=== PATIENT | female | born 1945 | race Caucasian/White ===

== ENCOUNTER 2017-10-16 11:56 | Inpatient (IN) | payer OTHER, MEDICARE ==
[~2017-10-16] VITALS: Ht 171.4 cm; Wt 126.8 kg
[2017-10-16] MEDS ORDERED: BREO ELLIPTA 11 EACH INH (12:00)
[2017-10-16] MEDS ORDERED: ANASTROZOLE1 M1 PO (12:00)
[2017-10-16] MEDS ORDERED: INCRUSE ELLI62.5 MCG INH (12:01)
[2017-10-16] MEDS ORDERED: PROAIR HFA8.5 GM INH (12:01)
[2017-10-16] MEDS ORDERED: LISINOPRIL-HCT1 EACH PO (12:02)
[2017-10-16] MEDS ORDERED: ALLOPURINOL100 M1 PO (12:02)
[2017-10-16] MEDS ORDERED: AMLODIPINE BESY10 M1 PO (12:02)
[2017-10-16] MEDS ORDERED: MIRTAZAPINE30 M2 PO (12:03)
[2017-10-16] MEDS ORDERED: VENLAFAXINE HC150 MG PO (12:04)
[2017-10-16] MEDS ORDERED: SIMVASTATIN80 M1 PO (12:04)
[2017-10-16] MEDS ORDERED: LEVOTHYROXINE100 MC1 PO (12:05)
[2017-10-16] MEDS ORDERED: CARISOPRODOL350 M1 PO (12:05)
[2017-10-16] MEDS ORDERED: NAMENDA10 M2 PO (12:05)
[2017-10-16] MEDS ORDERED: ASPIRIN81 M4 PO (12:06)
[2017-10-16] MEDS ORDERED: DIAZEPAM10 M1 PO (12:06)
[2017-10-16] MEDS ORDERED: MYRBETRIQ25 M1 PO (12:06)
[2017-10-16] MEDS ORDERED: CLARITIN10 M1 PO (12:07)
--- NOTE | 2017-10-16 12:24 | ED NEURO DEFICIT/STROKE ---
See Addendum History of Present Illness General Chief Complaint: Neuro Symptoms/ Deficit Stated Complaint: NEURO Source: patient, family, old records, EMS Exam Limitations: no limitations Vital Signs & Intake/Output Vital Signs & Intake/Output Vital Signs Date Time Temp Pulse Resp B/P B/P Pulse O2 O2 Flow FiO2 Mean Ox Delivery Rate 10/16 1315 96.5 88 18 104/51 94 Nasal 2.0L Cannula 10/16 1156 94 Nasal 2.0L Cannula Allergies Coded Allergies: Penicillins (UNKNOWN 10/16/17) Reconcile Medications Albuterol Sulfate (Proair Hfa) 90 MCG HFA.AER.AD 2 PUF INH Q4-6 PRN PRN SHORTNESS OF BREATH (Reported) Allopurinol 100 MG TABLET 1 TAB PO QPM GOUT (Reported) Amlodipine Besylate 10 MG TABLET 1 TAB PO DAILY HEART (Reported) Anastrozole 1 MG TABLET 1 TAB PO DAILY BREAST CANCER (Reported) Aspirin (Aspirin*) 81 MG TAB.CHEW 1 TAB PO QPM HEART HEALTH (Reported) Carisoprodol 350 MG TABLET 1 TAB PO TIDPRN PRN SPASMS (Reported) Diazepam 10 MG TABLET 1 TAB PO TIDPRN PRN ANXIETY (Reported) Fluticasone/Vilanterol (Breo Ellipta 100-25 Mcg INH) 100 MCG-25 MCG/DOSE BLST.W.DEV 1 PUFF INH DAILY BREATHING PROBLEMS (Reported) Levothyroxine Sodium 100 MCG TABLET 1 TAB PO DAILY AC THYROID (Reported) Lisinopril/Hydrochlorothiazide (Lisinopril-Hctz 20-12.5 MG Tab) 20 MG-12.5 MG TABLET 1 TAB PO DAILY HEART (Reported) Loratadine (Claritin) 10 MG TABLET 1 TAB PO DAILY ALLERGIES (Reported) Memantine HCl (Namenda) 10 MG TABLET 1 TAB PO BID MEMORY (Reported) Mirabegron (Myrbetriq) 25 MG TAB.ER.24H 1 TAB PO DAILY BLADDER (Reported) Mirtazapine 30 MG TABLET 1 TAB PO QPM SLEEP (Reported) Simvastatin (Simvastatin*) 80 MG TABLET 1 TAB PO QPM CHOLESTEROL (Reported) Umeclidinium [place] (Incruse Ellipta) 62.5 MCG/ACTUATION BLST.W.DEV 1 PUFF INH DAILY BREATHING PROBLEMS (Reported) Venlafaxine HCl (Venlafaxine HCl ER) 150 MG CAP.ER.24H 1 CAP PO QPM MENTAL HEALTH (Reported) Triage Nurses Notes Reviewed? yes HPI: Patient is currently staying with her daughter. Patient had a mechanical fall out of bed this morning. EMS was contacted. Patient was able to get up and walk around and do her activities of daily living normally this morning so she refused treatment. One hour prior to arrival patient had a sudden onset of right arm weakness and difficulty finding her words. EMS was contacted and patient was brought in for evaluation. Patient denies any headache or blurry vision. There is no chest pain or shortness of breath. Past History Travel History Traveled to [place] past 21 day No Medical History Any Pertinent Medical History? see below for history Cardiovascular: hypertension, hyperlipidemia Surgical History Surgical History: non-contributory Family History Hx Contributory? No Review of Systems Review of Systems Constitutional: Reports: no symptoms. EENTM: Reports: no symptoms. Respiratory: Reports: no symptoms. Cardiovascular: Reports: no symptoms. GI: Reports: no symptoms. Genitourinary: Reports: no symptoms. Musculoskeletal: Reports: no symptoms. Skin: Reports: no symptoms. Neurological/Psychological: Reports: see HPI. Hematologic/Endocrine: Reports: no symptoms. Immunologic/Allergic: Reports: no symptoms. All Other Systems: Reviewed and Negative Physical Exam Physical Exam General Appearance: well developed/nourished, alert, awake, anxious, mild distress Head: atraumatic, normal appearance Eyes: Bilateral: PERRL, EOMI. Ears, Nose, Throat: normal ENT inspection, moist mucous membrane, hearing grossly normal Neck: normal inspection, supple, full range of motion Respiratory: normal breath sounds, chest non-tender, no respiratory distress, lungs clear Cardiovascular: regular rate/rhythm, normal peripheral pulses Gastrointestinal: normal bowel sounds, soft, non-tender, no organomegaly Back: normal inspection, normal range of motion Extremities: normal range of motion Psychiatric: awake, alert, oriented x 3 Cranial Nerves: normal hearing, PERRL, WORD FINDING Coordination/Gait: RIGHT PRONATOR DRIFT Motor/Sensory: motor deficit, pronator drift (R) Reflexes: 2+: bicep (R), bicep (L), tricep (L), tricep (L), knee (R), knee (L). Skin: intact, normal color, warm/dry Lymphatic: no anterior cervical estela Core Measures CVA/TIA Diagnosis: Yes NIH Stroke Scale NIH Stroke Scale Response Value Level of Consciousness alert 0 LOC Questions answers both correctly 0 LOC Commands obeys both correctly 0 Best Gaze normal 0 Visual Carpio no visual loss 0 Facial Paresis normal 0 Motor Arm - Left no drift 0 Motor Arm - Right drift 1 Motor Leg - Left no drift 0 Motor Leg - Right no drift 0 Limb Ataxia no ataxia 0 Sensory normal 0 Best Language mild to moderate aphasia 1 Dysarthria normal articulation 0 Extinction and Inattention no neglect 0 Total 2 Date Last Known Well: 10/16/17 Time Last Known Well: 1100 Symptom Start Date: 10/16/17 Symptom Start Time: 1100 tPA Risk/Benefit discussion I have discussed the risks, benefits, and alternatives of Alteplase treatment including: - If given promptly, can resolve or have major improvement in stroke symptoms. - Bleeding (hemorrhage) is the most common risk that can occur. - Bleeding may occur into the brain and cause~long-term serious disability~ including - this is rare, affecting about 1% of patients. - Alternative treatments with proven benefit for patients with stroke include aspirin and care in a specialized unit where staff members pay careful attention to a variety of basic aspects of care. tPA given? No Reason tPA not given Medical Contraindication Swallow Evaluation Pass Swallow eval date 10/16/17 Swallow eval time 1257 Sepsis Present: No Sepsis Focused Exam Completed? No Progress Differential Diagnosis: electrolyte imbalance, intracranial mass/tumor, migraine ELIAS, stroke, subarachnoid Hem., vertebrobasilar insuff. Plan of Care: Orders Procedure Date/time Status Heart Healthy Diet 10/16 D Active Patient Data 10/[address] in observation 10/16 1332 Active ED Holding Orders 10/16 1332 Active Code Status 10/[address] NECK ANGIOGRAM 10/[address] HEAD ANGIOGRAM 10/16 1233 Active XRY-PORTABLE CHEST XRAY 10/16 1203 Active Saline Lock 10/16 1203 Active URINALYSIS 10/16 1203 Active PARTIAL THROMBOPLASTIN TIME 10/16 1203 Complete PROTHROMBIN TIME 10/16 1203 Complete COMPREHENSIVE METABOLIC PANEL 10/16 1203 Active CBC WITHOUT DIFFERENTIAL 10/16 1203 Complete EKG 10/16 1203 Active Current Medications Sig/Ryan Start time Last Medication Dose Stop Time Status Admin Potassium Chloride 20 MEQ .Q6H40M 10/16 1215 UNVr (KCl 20MEQ in D5W NS 1000ML) Dextrose/Sodium 1,000 ML Chloride (D5-Normal Saline) Laboratory Tests 10/16/17 1225: Sodium Pending, Potassium Pending, Chloride Pending, Carbon Dioxide Pending, Anion Gap Pending, BUN Pending, Creatinine Pending, BUN/Creatinine Ratio Pending , Glucose Pending, Calcium Pending, Total Bilirubin Pending, AST Pending, ALT Pending, Alkaline Phosphatase Pending, Total Protein Pending, Albumin Pending, Globulin Pending, Albumin/Globulin Ratio Pending, PT 11.9, INR 1.09, APTT 33, CBC w Diff NO MAN DIFF REQ, RBC 4.46, MCV 95.1, MCH 31.6 H, MCHC 33.2, RDW 15.0 H, MPV 7.2 L, Gran % 75.9 H, Lymphocytes % 16.2 L, Monocytes % 4.7, Eosinophils % 2.8, Basophils % 0.4, Absolute Granulocytes 7.9 H, Absolute Lymphocytes 1.7, Absolute Monocytes 0.5, Absolute Eosinophils 0.3, Absolute Basophils 0 Diagnostic Imaging: Viewed by Me: Radiology Read, CT Scan. Discussed w/RAD: Radiology Read, CT Scan. Radiology Impression: PATIENT: CHUY MODI PRESENT AGE: 71 PATIENT ACCOUNT NO: [id number] : 43 LOCATION: [facility] ORDERING PHYSICIAN: Yusef Alvarado MD SERVICE DATE: 10/16/17 EXAM TYPE: CAT - CT CERV SPINE WO IV CONTRAST EXAMINATION: CT OF THE CERVICAL SPINE WITHOUT CONTRAST CLINICAL INFORMATION: Question fell out of bed. Evaluate for fracture.. COMPARISON: None. TECHNIQUE: Contiguous axial imaging was then performed from the skull base down to the thoracic inlet. Coronal and sagittal reformations of the cervical spine were obtained. DLP: 1141.85 mGy-cm. (This dose report includes the CT scan of the head). FINDINGS: Normal alignment is seen with no evidence of acute fracture or dislocation. Craniocervical junction and atlantoaxial articulations are intact. Prevertebral soft tissues are normal in thickness. There is extensive degenerative change at the atlantoaxial articulation with calcifications of the transverse ligament and prominent hypertrophic changes seen. There is severe degenerative disc disease with early fusion across the C5-6 and C6-7 levels with associated prominent spurring and cystic changes seen. Posterior marginal spurs are seen projecting into the spinal canal at the C5-6 and C6-7 levels causing mild spinal stenosis. Moderate facet arthropathy is seen throughout the mid and lower cervical spine, more pronounced on the left side than the right. Moderate degenerative changes are also seen in the upper thoracic spine. The included soft tissues of the neck and lung apices are unremarkable. IMPRESSION: 1. No evidence of cervical spine fracture or malalignment. 2. Severe degenerative disc disease and partial fusion across C5-6 and C6-7. 3. Moderate degenerative changes at the atlantoaxial articulation and at the facet joints in the mid and lower cervical spine. DICTATED BY: Velvet Irene MD DATE/TIME DICTATED:10/16/171234 TRANSFUSION NURSE:ANDREA DATE/TIME TRANSCRIBED:10/16/171234 CONFIDENTIAL, DO NOT COPY WITHOUT APPROPRIATE AUTHORIZATION. <Electronically signed in Other Vendor System> SIGNED BY: Velvet Irene MD 10/16/17 1249, PATIENT: CHUY MODI PRESENT AGE: 71 PATIENT ACCOUNT NO: [id number] : 43 LOCATION: [facility] ORDERING PHYSICIAN: Yusef Alvarado MD SERVICE DATE: 10/16/17 EXAM TYPE: CAT - CT HEAD WO IV CONTRAST EXAMINATION: CT HEAD WITHOUT CONTRAST CLINICAL INFORMATION: Word finding, right pronator drift. Question CVA. COMPARISON: None TECHNIQUE: Contiguous axial imaging was performed from the skull base to vertex without intravenous administration of contrast. DLP: 1141.85 mGy-cm (this dose report includes the CT scan of the cervical spine). FINDINGS: Evaluation is limited due to motion artifact. There is no evidence of acute intracranial hemorrhage or territorial infarction. No abnormal mass effect or midline shift is seen. Smith to white matter differentiation is largely preserved. There is some indistinctness of the left insular cortex, but this may simply be related to the extensive streak artifact. No extra-axial fluid collections are identified. The ventricles and sulci are mildly enlarged, consistent with involutional changes. There is no abnormal attenuation within the brain parenchyma. The osseous structures and soft tissues are normal. A mucus retention cyst in the left maxillary sinus is seen The mastoid air cells and visualized portions of the paranasal sinuses are otherwise well aerated. IMPRESSION: 1. No definite territorial infarct seen, though evaluation is significantly limited by the motion artifact. Close follow- up is recommended. 2. No acute intracranial hemorrhage. 3. Small mucous retention cyst in the left maxillary sinus. This critical result was discussed with Dr. Alvarado 10/16/2017, 12:32 PM and it was ascertained that the content and urgency of this report was understood at the time of direct communication. DICTATED BY: Velvet Irene MD DATE/TIME DICTATED:10/16/171215 TRANSFUSION NURSE:ANDREA DATE/TIME TRANSCRIBED:10/16/171215 CONFIDENTIAL, DO NOT COPY WITHOUT APPROPRIATE AUTHORIZATION. <Electronically signed in Other Vendor System> SIGNED BY: Velvet Irene MD 10/16/17 1238 Pre-Hospital EKG: NSR, nonspecific ST T wave chg Initial ED EKG: NSR, nonspecific ST T wave chg Rhythm Strip: normal sinus rhythm Comments: When patient got off the CT table on reevaluation her symptoms have resolved. Patient now has a clear fluent speech. There is no pronator drift. Departure Departure Disposition: STILL A PATIENT Condition: Stable Clinical Impression Primary Impression: TIA (transient ischemic attack) Referrals: Jyoti TURK,Getachew Parada (PCP/Family) Departure Forms: Customer Survey General Discharge Information Observation Note Spoke With: Jaylan TURK,Pete Physician Advisor Notified: KWAKU TURK,YUSEF [address] Patient In: Non-ED OBS Care Area Rationale for Observation: My rational for observation is as follows [TELE OBS, NEURO CONSULT].
[2017-10-16 12:33] LABS: ABSOLUTE BASOPHIL COUNT 0 /CUMM (0.0-0.2); ABSOLUTE EOSINOPHIL COUNT 0.3 /CUMM (0.0-0.7); ABSOLUTE GRANULOCYTE CT 7.9 /CUMM (1.4-6.5); ABSOLUTE LYMPH COUNT 1.7 /CUMM (1.2-3.4); ABSOLUTE MONOCYTE COUNT 0.5 /CUMM (0.10-0.60); BASOPHIL % 0.4 % (0.0-2.0); EOSINOPHIL % 2.8 % (0-5); GRANULOCYTE % 75.9 % (42.2-75.2); HEMATOCRIT 42.4 % (37-47); MEAN CORPUSCULAR HGB 31.6 PG (27.0-31.0); MEAN CORPUSCULAR HGB CONC 33.2 G/DL (33.0-37.0); MEAN CORPUSCULAR VOLUME 95.1 FL (81.0-99.0); MEAN PLATELET VOLUME 7.2 FL (7.4-10.4); PLATELET COUNT 347 /CUMM (130-400); RED BLOOD CELL CT 4.46 /CUMM (4.20-5.40); WHITE BLOOD CELL COUNT 10.4 /CUMM (4.8-10.8)
--- NOTE | 2017-10-16 12:38 | CT SCAN REPORT ---
EXAMINATION: CT HEAD WITHOUT CONTRAST CLINICAL INFORMATION: Word finding, right pronator drift. Question CVA. COMPARISON: None TECHNIQUE: Contiguous axial imaging was performed from the skull base to vertex without intravenous administration of contrast. DLP: 1141.85 mGy-cm (this dose report includes the CT scan of the cervical spine). FINDINGS: Evaluation is limited due to motion artifact. There is no evidence of acute intracranial hemorrhage or territorial infarction. No abnormal mass effect or midline shift is seen. Smith to white matter differentiation is largely preserved. There is some indistinctness of the left insular cortex, but this may simply be related to the extensive streak artifact. No extra-axial fluid collections are identified. The ventricles and sulci are mildly enlarged, consistent with involutional changes. There is no abnormal attenuation within the brain parenchyma. The osseous structures and soft tissues are normal. A mucus retention cyst in the left maxillary sinus is seen The mastoid air cells and visualized portions of the paranasal sinuses are otherwise well aerated. IMPRESSION: 1. No definite territorial infarct seen, though evaluation is significantly limited by the motion artifact. Close follow-up is recommended. 2. No acute intracranial hemorrhage. 3. Small mucous retention cyst in the left maxillary sinus. This critical result was discussed with Dr. Alvarado 10/16/2017, 12:32 PM and it was ascertained that the content and urgency of this report was understood at the time of direct communication.
[2017-10-16 12:42] LABS: PT 11.9 SEC (9.4-12.5); PTT 33 SEC (25-37)
--- NOTE | 2017-10-16 12:49 | CT SCAN REPORT ---
EXAMINATION: CT OF THE CERVICAL SPINE WITHOUT CONTRAST CLINICAL INFORMATION: Question fell out of bed. Evaluate for fracture.. COMPARISON: None. TECHNIQUE: Contiguous axial imaging was then performed from the skull base down to the thoracic inlet. Coronal and sagittal reformations of the cervical spine were obtained. DLP: 1141.85 mGy-cm. (This dose report includes the CT scan of the head). FINDINGS: Normal alignment is seen with no evidence of acute fracture or dislocation. Craniocervical junction and atlantoaxial articulations are intact. Prevertebral soft tissues are normal in thickness. There is extensive degenerative change at the atlantoaxial articulation with calcifications of the transverse ligament and prominent hypertrophic changes seen. There is severe degenerative disc disease with early fusion across the C5-6 and C6-7 levels with associated prominent spurring and cystic changes seen. Posterior marginal spurs are seen projecting into the spinal canal at the C5-6 and C6-7 levels causing mild spinal stenosis. Moderate facet arthropathy is seen throughout the mid and lower cervical spine, more pronounced on the left side than the right. Moderate degenerative changes are also seen in the upper thoracic spine. The included soft tissues of the neck and lung apices are unremarkable. IMPRESSION: 1. No evidence of cervical spine fracture or malalignment. 2. Severe degenerative disc disease and partial fusion across C5-6 and C6-7. 3. Moderate degenerative changes at the atlantoaxial articulation and at the facet joints in the mid and lower cervical spine.
--- NOTE | 2017-10-16 13:51 | CT SCAN REPORT ---
EXAMINATION: CT ANGIOGRAM OF THE HEAD CT ANGIOGRAM OF THE NECK CLINICAL INFORMATION: CVA. COMPARISON: CT scan of the head earlier 10/16/2017. TECHNIQUE: Test bolus series followed by intravenous administration 95 mL of Optiray 320. Helical imaging was performed in the axial plane from the mediastinum to the skull vertex. The degree of stenosis is based off NASCET criteria. The data was processed at the production technologist workstation for generation of MIP images. Three-dimensional volume rendered reformatted images were also generated at an offline 3-D workstation. Imaging is slightly the gradient by patient motion artifact. DLP: 1968.15 mGy-cm FINDINGS: CT Head: There is no evidence of acute intracranial hemorrhage or territorial infarction. No abnormal mass-effect or midline shift is seen. Smith to white matter differentiation is well preserved. No extra-axial fluid collections are identified. There is no abnormal enhancement. There is mild commensurate prominence of the ventricles and sulci consistent with diffuse volume loss. Brain parenchymal attenuation is slightly heterogenous in the periventricular and subcortical white matter, consistent with microvascular ischemic changes. Fat is noted in the anterior falx. There is relatively extensive hyperostosis frontalis interna. There are atheromatous calcifications of the bilateral cavernous internal carotid arteries in the right greater than left vertebral arteries. The soft tissues are unremarkable. The mastoid air cells are well-aerated. There is a retention cyst in the left maxillary sinus. CTA Neck: There is a classic configuration of the arch of the aorta. There are atheromatous calcifications of the aortic arch and at the origin of the left subclavian artery. The great vessels of the neck are widely patent. The subclavian arteries are patent bilaterally. The common carotid arteries have normal caliber. There are atheromatous calcifications of the carotid bifurcations bilaterally, but there is no significant stenosis. The cervical internal carotid arteries have uniform caliber and are widely patent. The origins of both vertebral arteries are well seen and appear normal. Both vertebral arteries are widely patent and demonstrate good opacification throughout their cervical course. The vertebral arteries are codominant. Nonvascular: There are emphysematous changes in the upper lung zones. The thyroid gland is nonenlarged. There is no cervical lymphadenopathy. There are relatively extensive spondylitic changes in the mid and lower cervical spine and in the upper thoracic spine. There are no acute osseous findings. CTA Head: There are atheromatous calcifications of the cavernous internal carotid arteries bilaterally. 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 The internal carotid artery bifurcations appear normal. The anterior and middle middle cerebral arteries demonstrate normal caliber without focal stenosis, aneurysm or vascular malformation. The anterior communicating artery appears normal. In the posterior circulation, vertebral arteries are codominant. There are atheromatous calcifications on the right greater than left proximal vertebral arteries. The vertebral arteries intradurally have uniform caliber. The basilar artery appears normal. The posterior cerebral arteries have normal caliber. The venous sinuses opacify normally. IMPRESSION: CT head: 1. There are no acute bleeds or territorial infarcts. 2. There are no masses or areas of abnormal enhancement. 3. There is volume loss and mild chronic microvascular ischemic disease. CT neck: 1. There are atheromatous calcifications at multiple levels as described above. 2. There is no significant stenosis in the carotid or vertebral arteries. CTA head: 1. 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 2. There are no focal stenoses or vascular malformations.
--- NOTE | 2017-10-16 14:37 | Cons- Neurology ---
General Information and HPI Consulting Request Date of Consult: 10/16/17 Requested By: Abeba Torres MD Reason for Consult: Transient Ischemic Attack Source of Information: patient Exam Limitations: no limitations History of Present Illness: 71-year-old woman with no prior neurologic history reports 2 episodes of inability to find words today, first in the morning and again in the afternoon at which point she presented to the ER. A stroke alert was called. An expressive aphasia without other evident deficits was noted by the ER MD, but were clearing by the time CT was done. 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 Allergies/Medications Allergies: Coded Allergies: Penicillins (UNKNOWN 10/16/17) Home Med List: Albuterol Sulfate (Proair Hfa) 90 MCG HFA.AER.AD 2 PUF INH Q4-6 PRN PRN SHORTNESS OF BREATH (Reported) Allopurinol 100 MG TABLET 1 TAB PO QPM GOUT (Reported) Amlodipine Besylate 10 MG TABLET 1 TAB PO DAILY HEART (Reported) Anastrozole 1 MG TABLET 1 TAB PO DAILY BREAST CANCER (Reported) Aspirin (Aspirin*) 81 MG TAB.CHEW 1 TAB PO QPM HEART HEALTH (Reported) Carisoprodol 350 MG TABLET 1 TAB PO TIDPRN PRN SPASMS (Reported) Diazepam 10 MG TABLET 1 TAB PO TIDPRN PRN ANXIETY (Reported) Fluticasone/Vilanterol (Breo Ellipta 100-25 Mcg INH) 100 MCG-25 MCG/DOSE BLST.W.DEV 1 PUFF INH DAILY BREATHING PROBLEMS (Reported) Levothyroxine Sodium 100 MCG TABLET 1 TAB PO DAILY AC THYROID (Reported) Lisinopril/Hydrochlorothiazide (Lisinopril-Hctz 20-12.5 MG Tab) 20 MG-12.5 MG TABLET 1 TAB PO DAILY HEART (Reported) Loratadine (Claritin) 10 MG TABLET 1 TAB PO DAILY ALLERGIES (Reported) Memantine HCl (Namenda) 10 MG TABLET 1 TAB PO BID MEMORY (Reported) Mirabegron (Myrbetriq) 25 MG TAB.ER.24H 1 TAB PO DAILY BLADDER (Reported) Mirtazapine 30 MG TABLET 1 TAB PO QPM SLEEP (Reported) Simvastatin (Simvastatin*) 80 MG TABLET 1 TAB PO QPM CHOLESTEROL (Reported) Umeclidinium [place] (Incruse Ellipta) 62.5 MCG/ACTUATION BLST.W.DEV 1 PUFF INH DAILY BREATHING PROBLEMS (Reported) Venlafaxine HCl (Venlafaxine HCl ER) 150 MG CAP.ER.24H 1 CAP PO QPM MENTAL HEALTH (Reported) Current Medications: Current Medications Sig/Ryan Start time Last Medication Dose Route Stop Time Status Admin Aspirin 0 .STK-MED ONE 10/16 1337 DC PO Aspirin 325 MG ONCE ONE 10/16 1300 DC 10/16 PO 10/16 1301 1345 Potassium Chloride 20 MEQ .Q6H40M 10/16 1215 AC 10/16 Dextrose/Sodium 1,000 ML IV 10/16 1854 1345 Chloride Review of Systems Review of Systems: The complete medical ROS reveals no complaints whatsoever Past History Travel History Traveled to [place] past 21 day No Medical History Neurological: dementia EENT: NONE Cardiovascular: hypertension, hyperlipidemia Respiratory: asthma Gastrointestinal: GASTRITIS Hepatic: NONE Renal: KIDNEY STONES Musculoskeletal: NONE Psychiatric: anxiety, depression Endocrine: hypothyroidism Blood Disorders: NONE Cancer(s): breast cancer Surgical History Surgical History: non-contributory Psychosocial History Smoking Status: Former Smoker ETOH Use: denies use Exam & Diagnostic Data Vital Signs and I&O Vital Signs Date Time Temp Pulse Resp B/P B/P Pulse O2 O2 Flow FiO2 Mean Ox Delivery Rate 10/16 1403 88 18 109/53 98 Nasal 2.0L Cannula 10/16 1315 96.5 88 18 104/51 94 Nasal 2.0L Cannula 10/16 1156 94 Nasal 2.0L Cannula Intake & Output 10/16 1600 10/16 0800 10/16 0000 Intake Total 150 Output Total Balance 150 Intake, Oral 150 Patient 311 lb Weight Weight Bed scale Measurement Method Physical Exam: overweight, no distress no carotid bruits or murmur alert, oriented, no dynomia or dysarthria, but difficult to engage in conversation. Follows 130, 90commands OK VFF, EOMI, P4ERRL lower CN 5-12 normal power 5/5 all 4 ext, no drift DTRs trace UE, absent LE, right Babinski sensory WNL coord, mild tremor on NFN bilaterally gait testing deferred Last 48 Hours of Lab Results: Laboratory Tests 10/16 1225 Chemistry Sodium (137 - 145 mmol/L) 135 L Potassium (3.5 - 5.1 mmol/L) 4.1 Chloride (98 - 107 mmol/L) 96 L Carbon Dioxide (22 - 30 mmol/L) 30 Anion Gap (5 - 16) 9 BUN (7 - 17 mg/dL) 27 H Creatinine (0.5 - 1.0 mg/dL) 1.0 Estimated GFR (>60 ml/min) 54 L BUN/Creatinine Ratio (7 - 25 %) 27.0 H Glucose (65 - 99 mg/dL) 109 H Calcium (8.4 - 10.2 mg/dL) 9.1 Total Bilirubin (0.2 - 1.3 mg/dL) 0.5 AST (14 - 36 U/L) 52 H ALT (9 - 52 U/L) 43 Alkaline Phosphatase (<127 U/L) 81 Total Protein (6.3 - 8.2 g/dL) 6.8 Albumin (3.5 - 5.0 g/dL) 3.9 Globulin (1.9 - 4.2 gm/dL) 2.9 Albumin/Globulin Ratio (1.1 - 2.2 %) 1.3 Coagulation PT (9.4 - 12.5 SEC) 11.9 INR (0.90 - 1.19) 1.09 APTT (25 - 37 SEC) 33 Hematology CBC w Diff NO MAN DIFF REQ WBC (4.8 - 10.8 /CUMM) 10.4 RBC (4.20 - 5.40 /CUMM) 4.46 Hgb (12.0 - 16.0 G/DL) 14.1 Hct (37 - 47 %) 42.4 MCV (81.0 - 99.0 FL) 95.1 MCH (27.0 - 31.0 PG) 31.6 H MCHC (33.0 - 37.0 G/DL) 33.2 RDW (11.5 - 14.5 %) 15.0 H Plt Count (130 - 400 /CUMM) 347 MPV (7.4 - 10.4 FL) 7.2 L Gran % (42.2 - 75.2 %) 75.9 H Lymphocytes % (20.5 - 51.1 %) 16.2 L Monocytes % (1.7 - 9.3 %) 4.7 Eosinophils % (0 - 5 %) 2.8 Basophils % (0.0 - 2.0 %) 0.4 Absolute Granulocytes (1.4 - 6.5 /CUMM) 7.9 H Absolute Lymphocytes (1.2 - 3.4 /CUMM) 1.7 Absolute Monocytes (0.10 - 0.60 /CUMM) 0.5 Absolute Eosinophils (0.0 - 0.7 /CUMM) 0.3 Absolute Basophils (0.0 - 0.2 /CUMM) 0 Imaging/Other Studies: CT head: 1. There are no acute bleeds or territorial infarcts. 2. There are no masses or areas of abnormal enhancement. 3. There is volume loss and mild chronic microvascular ischemic disease. CT neck: 1. There are atheromatous calcifications at multiple levels as described above. 2. There is no significant stenosis in the carotid or vertebral arteries. CTA head: 1. 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 2. There are no focal stenoses or vascular malformation Assessment/Plan Assessment: TIA, pt reports 2 events today, no prior hx Left MCA pattern with dysphasia persisting right Babinski sign neg CT occurred on ASA and a statin BP actually low Recommendations: admit telemetry continue ASA 81 mg daily add plavix 75 mg daily high intensity statin: atorvastatin 40 mg daily Echocardiogram if clinically stable 24 h consider discharge home and out-pt f/u Consult Acknowledgment - Thank you for your consult request.
--- NOTE | 2017-10-16 14:44 | RADIOLOGY REPORT ---
EXAMINATION: XR PORTABLE CHEST CLINICAL INFORMATION: Chest pain. COMPARISON: None TECHNIQUE: Portable AP semierect view of the chest was obtained. FINDINGS: EKG leads overlie the chest. The cardiomediastinal silhouette is within normal limits in size. Calcification of the aortic arch is seen. Lungs bilaterally are symmetrically expanded with mild linear atelectatic changes seen in the lung bases bilaterally. No focal consolidation, effusion or pneumothorax is seen. Bony structures are unremarkable. IMPRESSION: Mild bibasilar subsegmental atelectasis. No other acute process.
--- NOTE | 2017-10-16 15:10 | History & Physical ---
Nate Morrow 10/16/17 1509: General Information and HPI Source of Information: patient Exam Limitations: no limitations History of Present Illness: Pt is a 71 yo F with PMH significant for COPD, CAD, HTN, HLD, Left breast cancer s/p lumpectomy and radiation therapy, hypothyroidism, urinary incontinence, and Lewy Body Dementia (dx 3 years ago). She is brought in to ED by her daughter after an episode of impaired speech. Hx was obtained from both the patient and the mother. Pt had a mechanical fall around 9 AM in the morning after losing her balance. Daughter denies pt hitting her head or any LOC. Daughter called EMS who assessed the pt and advised taking her to hospital but pt refused. Later at 11 AM, daughter found that her mother had impaired speech, first speaking incoherently which then progressed to garbled sounds. She also says that she saw her mother's upper extremities shaking/flapping. On second arrival by EMS, pt found to have right side weakness and was therefore brought to [place] ED for further eval. Pt is now apparently back to baseline as per daughter. No focal deficits/ impaired speech noticed during HPI. Pt seems somewhat lethargic. Pt denies any ELIAS, auras, blurry vision, ringing in ears, chest pain, palpitations, tinginling in extremities, N/V/D, before, during, or prior to event. Pt can't remember the garbled speech but can remember everything prior and after the event. Allergies/Medications Allergies: Coded Allergies: Penicillins (UNKNOWN 10/16/17) Home Med list Albuterol Sulfate (Proair Hfa) 90 MCG HFA.AER.AD 2 PUF INH Q4-6 PRN PRN SHORTNESS OF BREATH (Reported) Allopurinol 100 MG TABLET 1 TAB PO QPM GOUT (Reported) Amlodipine Besylate 10 MG TABLET 1 TAB PO DAILY HEART (Reported) Anastrozole 1 MG TABLET 1 TAB PO DAILY BREAST CANCER (Reported) Aspirin (Aspirin*) 81 MG TAB.CHEW 1 TAB PO QPM HEART HEALTH (Reported) Carisoprodol 350 MG TABLET 1 TAB PO TIDPRN PRN SPASMS (Reported) Diazepam 10 MG TABLET 1 TAB PO TIDPRN PRN ANXIETY (Reported) Fluticasone/Vilanterol (Breo Ellipta 100-25 Mcg INH) 100 MCG-25 MCG/DOSE BLST.W.DEV 1 PUFF INH DAILY BREATHING PROBLEMS (Reported) Levothyroxine Sodium 100 MCG TABLET 1 TAB PO DAILY AC THYROID (Reported) Lisinopril/Hydrochlorothiazide (Lisinopril-Hctz 20-12.5 MG Tab) 20 MG-12.5 MG TABLET 1 TAB PO DAILY HEART (Reported) Loratadine (Claritin) 10 MG TABLET 1 TAB PO DAILY ALLERGIES (Reported) Memantine HCl (Namenda) 10 MG TABLET 1 TAB PO BID MEMORY (Reported) Mirabegron (Myrbetriq) 25 MG TAB.ER.24H 1 TAB PO DAILY BLADDER (Reported) Mirtazapine 30 MG TABLET 1 TAB PO QPM SLEEP (Reported) Simvastatin (Simvastatin*) 80 MG TABLET 1 TAB PO QPM CHOLESTEROL (Reported) Umeclidinium [place] (Incruse Ellipta) 62.5 MCG/ACTUATION BLST.W.DEV 1 PUFF INH DAILY BREATHING PROBLEMS (Reported) Venlafaxine HCl (Venlafaxine HCl ER) 150 MG CAP.ER.24H 1 CAP PO QPM MENTAL HEALTH (Reported) Past History Travel History Traveled to [place] past 21 day No Medical History Neurological: dementia EENT: NONE Cardiovascular: hypertension, hyperlipidemia Respiratory: asthma Gastrointestinal: GASTRITIS Hepatic: NONE Renal: KIDNEY STONES Musculoskeletal: NONE Psychiatric: anxiety, depression Endocrine: hypothyroidism Blood Disorders: NONE Cancer(s): breast cancer Surgical History Surgical History: non-contributory Past Family/Social History Psychosocial History Smoking Status: Former Smoker ((Quit 30 years ago)) ETOH Use: denies use Review of Systems Review of Systems Constitutional: Reports: see HPI. Exam & Diagnostic Data Last 24 Hrs of Vital Signs/I&O Vital Signs Date Time Temp Pulse Resp B/P B/P Pulse O2 O2 Flow FiO2 Mean Ox Delivery Rate 10/17 0354 98.2 92 20 144/80 10/17 0250 93 22 144/80 93 Room Air 10/16 2232 Room Air 10/16 2140 97.4 86 18 120/64 95 Room Air 10/16 1639 98.2 88 20 120/64 93 Room Air 10/16 1606 97 Nasal 2.0L Cannula 10/16 1526 97.0 88 18 109/56 95 Nasal 2.0L Cannula 10/16 1403 88 18 109/53 98 Nasal 2.0L Cannula 10/16 1315 96.5 88 18 104/51 94 Nasal 2.0L Cannula 10/16 1156 94 Nasal 2.0L Cannula Intake & Output 10/17 0800 10/17 0000 10/16 1600 Intake Total 200 240 150 Output Total 100 Balance 200 140 150 Intake, Oral 200 240 150 Output, Urine 100 Patient 280 lb 311 lb Weight Weight Bed scale Measurement Method Physical Exam General Appearance Oriented X3, Cooperative, No Acute Distress, Lethargic Skin Temp/Moisture Exam: Warm/Dry HEENT Atraumatic, PERRLA, EOMI Neck Supple Cardiovascular Regular Rate, Normal S1, Normal S2 Lungs Clear to Auscultation Abdomen Normal Bowel Sounds, Soft, No Tenderness Neurological Normal Speech, Strength at 5/5 X4 Ext, Cranial Nerves 3-12 NL Extremities No Tenderness/Swelling Last 24 Hrs of Labs/Dajuan: 10/16/17 1900: Urine Color YEL, Urine Clarity CLEAR, Urine pH 6.0, Ur Specific [place] 1.010, Urine Protein NEG, Urine Ketones NEG, Urine Nitrite NEG, Urine Bilirubin NEG, Urine Urobilinogen 0.2, Ur Leukocyte Esterase NEG, Ur Microscopic EXAM NOT REQUIRED, Urine Hemoglobin NEG, Urine Glucose NEG 10/16/17 1225: Anion Gap 9, Estimated GFR 54 L, BUN/Creatinine Ratio 27.0 H, Glucose 109 H, Calcium 9.1, Total Bilirubin 0.5, AST 52 H, ALT 43, Alkaline Phosphatase 81, Total Protein 6.8, Albumin 3.9, Globulin 2.9, Albumin/Globulin Ratio 1.3, PT 11.9, INR 1.09, APTT 33, CBC w Diff NO MAN DIFF REQ, RBC 4.46, MCV 95.1, MCH 31.6 H, MCHC 33.2, RDW 15.0 H, MPV 7.2 L, Gran % 75.9 H, Lymphocytes % 16.2 L, Monocytes % 4.7, Eosinophils % 2.8, Basophils % 0.4, Absolute Granulocytes 7.9 H, Absolute Lymphocytes 1.7, Absolute Monocytes 0.5, Absolute Eosinophils 0.3, Absolute Basophils 0 Assessment/Plan Assessment: Pt is a 71 yo F with PMH significant for COPD, CAD, HTN, HLD, Left breast cancer s/p lumpectomy and radiation therapy, hypothyroidism, urinary incontinence, and Lewy Body Dementia (dx 3 years ago). She is brought in to ED by her daughter after an episode of impaired speech. #Syncope 2/2 Lewy Body Dementia vs TIA (R/O Vascular vs Arrhythmia) - placed in observation on tele floor - add plavix as per neuro - ct head and cta head/neck - negative for acute process, small aneurysm R ICA - obtain echo - ekg and trops x 1 - negative #Lethargy 2/2 possibly benzo use and/or hypotension - orthostatics Q6 - continue fluids #Abnormal LFTs - liver panel, RUQ U/S - continue home meds - full code - dvt ppx; ALPS and LMWH SubQ As Ranked By This Provider Problem List: 1. TIA (transient ischemic attack) Core Measures/Misc (11/23) Acute Coronary Syndrome ACS Diagnosis: No Congestive Heart Failure Congestive Heart Failure Diagnosis No Cerebrovascular Accident CVA/TIA Diagnosis: Yes Date Last Known Well: 10/16/17 Time Last Known Well: 1100 Symptom Start Date: 10/16/17 Symptom Start Time: 1100 Swallow Evaluation Pass VTE (View Protocol) VTE Risk Factors Age>40 No Mechanical VTE Prophylaxis d/t Other No VTE Pharm Prophylaxis d/t Other Sepsis (View protocol) Sepsis Present: No If YES complete Sepsis Event Note If YES complete Sepsis Event Note Abeba Torres MD 10/16/17 1539: Core Measures/Misc (11/23) Sepsis (View protocol) If YES complete Sepsis Event Note If YES complete Sepsis Event Note Attending MD Review Statement Attending Statement Attending MD Statement: examined this patient, discuss w/resident/PA/RECREATION THERAPY AIDE, agreed w/resident/PA/RECREATION THERAPY AIDE, discussed with family, reviewed EMR data (avail), discussed with nursing, amended to note Attending Assessment/Plan: Patient seen and examined. Daughter present at the bedside. Brought to the emergency room for evaluation due to complaints of right-sided weakness and word finding difficulties. Symptoms apparently resolved in the emergency room. She is currently back to baseline. Although drowsy she is easily arousable and speaking coherently. Speech is intact. She has no focal neurologic deficits on examination. Drowsiness is likely brought on by her benzodiazepine therapy. Daughter reports that she is not happy that the patient is on Valium on as accept primary care provider to discontinue to on several occasions. I did mention of this the patient did become very angry stating that the daughter should see out of her business. She reports that she requires the volume to keep her calm. Although it appears that the Valium is prescribed as 10 mg 3 times a day with patient and daughter state that she takes usually once a week and up to 3 times a week at most. She states that she does go on for long periods without taking it. Neuroimaging showed no evidence of stroke or intracranial vessel pathology. It is noted in the emergency room the blood pressure was borderline in the low 100s. Daughter states that this is not typical for the patient. Patient admits to taking her blood pressure medications this morning. Plan: -Placed on observation level of care. -Telemetry monitoring overnight. -Continue aspirin therapy. Add Plavix per recommendations of the neurology service. Continue lipid-lowering therapy. -Physical therapy evaluation. -Hold her antihypertensive medications for now. Resume if blood pressure improves. Monitor response to her blood pressure medications once resumed. -Obtain echocardiogram. -She has mildly elevated LFTs. Repeat in a.m. Obtain right upper quadrant sonogram. Check viral hepatitis panel. -Anticipate discharge next 24 hours if she remains clinically stable. Isrrael TURK,[facility] 10/16/17 1635: Core Measures/Misc (11/23) Sepsis (View protocol) If YES complete Sepsis Event Note If YES complete Sepsis Event Note Resident Review Statement Resident Statement: examined this patient, discussed with international broadcast music librarian, agreed with international broadcast music librarian, discussed with family, reviewed EMR data (avail), discussed with nursing , reviewed images Other Findings: Ms. Mayers is a 70-year-old lady with past medical history significant call for coronary artery disease, COPD, hypertension, hyperlipidemia, left breast cancer status post lumpectomy and radiation therapy, hypothyroidism, urinary incontinence and Lewy body dementia who is brought in by her daughter with a chief concern of difficulty talking. Per the daughter, her mother had a mechanical fall around 9 AM this morning, she did not hit her head or lose consciousness but she called EMS. Patient felt better and did not want to come to the hospital so EMS was sent back. Around 11 AM the daughter noticed that patient was having difficulty talking, she was initially saying the wrong words but later had garbled speech. also reported shaking of upper and lower extremities. Denies any confusion, loss of consciousness, bowel or bladder incontinence or tongue biting. Daughter called EMS again, and because patient was on a triple to walk at that time and also had right upper extremity weakness on examination patient was brought to the [place] ER for further evaluation. Denies any headaches, blurry vision or loss of vision, facial droop or numbness/tingling. Vitals are admission were stable. No neurological deficit found on examination. Negative cerebellar signs Labs were unremarkable. 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 Problem List; 1. TIA 2. Chronic medical conditions -We will observe the patient on telemetry floor for 24-48 hours. -We will add Plavix per neurology to her medications as patient was already taking aspirin at home. -Appreciate neurology recommendations. -Obtain echocardiogram. -Repeat troponin and EKG 1, initial set was negative. -Continue statin - PAtient passed bedside swallow eval, will start on regular diet. - PT eval. -Patient was found to be borderline hypotensive in the ER, will hold her antihypertensives, resume in a.m. if blood pressure allows. -Continue the rest of her medical medications DVT prophylaxis; ALPS subcu Lovenox Patient is full code
[2017-10-16 16:39] VITALS: BP 120/64
[2017-10-16 21:40] VITALS: BP 120/64
[2017-10-17 02:50] VITALS: BP 144/80
--- NOTE | 2017-10-17 03:44 | RADIOLOGY REPORT ---
EXAMINATION: XR KNEE, RIGHT CLINICAL INFORMATION: Fall with pain in right knee COMPARISON: None TECHNIQUE: Two views of the right knee. FINDINGS: No fracture or subluxation. Moderate medial compartment joint space narrowing. Prominent tricompartmental marginal osteophytes. Small joint effusion. Vascular calcifications present. Probable intra-articular body at the posterior joint line measuring 2 x 0.9 cm. IMPRESSION: No acute fracture or malalignment. Moderate to severe tricompartmental degenerative changes.
--- NOTE | 2017-10-17 03:44 | CT SCAN REPORT ---
EXAMINATION: CT HEAD WITHOUT CONTRAST CLINICAL INFORMATION: Fall going to the restroom. Head trauma. COMPARISON: 10/16/2017. TECHNIQUE: Contiguous axial imaging was performed from the skull base to vertex without intravenous contrast. DLP: 805 mGy-cm. FINDINGS: There is no evidence of acute intracranial hemorrhage or territorial infarction. No abnormal mass effect or midline shift is seen. Smith to white matter differentiation is well preserved. No extra-axial fluid collections are identified. No hydrocephalus. Proportional prominence of the ventricles and sulcal spaces is consistent with mild volume loss. Patchy periventricular and deep white matter hypoattenuation is consistent with mild small vessel ischemic changes. The osseous structures and soft tissues are normal. Mucous retention cyst of the left maxillary sinus. The mastoid air cells and visualized portions of the paranasal sinuses are otherwise well aerated. IMPRESSION: No acute intracranial pathology. Mild volume loss with small vessel ischemic change.
[2017-10-17 03:54] VITALS: BP 144/80
--- NOTE | 2017-10-17 05:25 | PN- Housestaff ---
See Addendum Subjective Follow-up For: TIA, fall Complaints: no complaints Tele-Events Since Last Visit: Normal sinus rhythm Subjective: Patient seen and examined at bedside. Overnight patient had a rapid response secondary due to fall. Patient denies headache, nausea, vomiting, chest pain. Review of Systems Constitutional: Reports: no symptoms. Objective Last 24 Hrs of Vital Signs/I&O Vital Signs Date Time Temp Pulse Resp B/P B/P Pulse O2 O2 Flow FiO2 Mean Ox Delivery Rate 10/17 0354 98.2 92 20 144/80 10/17 0250 93 22 144/80 93 Room Air 10/16 2232 Room Air 10/16 2140 97.4 86 18 120/64 95 Room Air 10/16 1639 98.2 88 20 120/64 93 Room Air 10/16 1606 97 Nasal 2.0L Cannula 10/16 1526 97.0 88 18 109/56 95 Nasal 2.0L Cannula 10/16 1403 88 18 109/53 98 Nasal 2.0L Cannula 10/16 1315 96.5 88 18 104/51 94 Nasal 2.0L Cannula 10/16 1156 94 Nasal 2.0L Cannula Intake & Output 10/17 0800 10/17 0000 10/16 1600 Intake Total 240 150 Output Total 100 Balance 140 150 Intake, Oral 240 150 Output, Urine 100 Patient 280 lb 311 lb Weight Weight Bed scale Measurement Method Physical Exam General Appearance: Alert, Oriented X3, Cooperative, No Acute Distress Cardiovascular: Regular Rate, Normal S1, Normal S2, No Murmurs Lungs: Clear to Auscultation Abdomen: Soft, No Tenderness, No Hepatospenomegaly Neurological: Normal Speech, Strength at 5/5 X4 Ext, Normal Tone, Sensation Intact, Cranial Nerves 3-12 NL Current Medications: Current Medications Sig/Ryan Start time Last Medication Dose Route Stop Time Status Admin Acetaminophen 650 MG Q6PRN PRN 10/16 1645 AC PO Albuterol Sulfate 2 PUF Q4-6 PRN PRN 10/16 1500 AC INH Allopurinol 100 MG QPM 10/16 2099 AC 10/16 PO 212 Amlodipine Besylate 10 MG DAILY 10/17 0900 CAN PO Anastrozole 1 MG DAILY@10/16 AC 10/16 PO 2119 Anastrozole 1 MG DAILY 10/16 1530 DC PO Aspirin 81 MG QPM 10/16 2099 AC 10/16 PO 2120 Aspirin 0 .STK-MED ONE 10/16 1337 DC PO Aspirin 325 MG ONCE ONE 10/16 1300 DC 10/16 PO 10/16 1301 1345 Atorvastatin Calcium 80 MG DAILY@10/16 AC 10/16 PO 2121 Atorvastatin Calcium 80 MG 1700 10/16 1700 DC PO Carisoprodol 350 MG TIDPRN PRN 10/16 1500 AC PO Clopidogrel Bisulfate 75 MG DAILY 10/16 1515 AC 10/16 PO 1738 Diazepam 5 MG TID PRN 10/16 1500 AC 10/16 PO 2123 Enoxaparin Sodium 40 MG DAILY 10/16 1633 AC 10/16 SC 1917 Fluticasone 1 PUF BID 10/17 09 AC Propionate INH Levothyroxine Sodium 0.1 MG DAILY AC 10/17 0700 AC PO Memantine 10 MG BID 10/16 2100 AC 10/16 PO 212 Mirabegron 25 MG DAILY 10/17 09 AC PO Mirtazapine 30 MG QPM 10/16 2100 AC 10/16 PO 2120 Non-Formulary 0 SEE ADMIN CRITERIA 10/16 1500 CAN Medication ANY Non-Formulary 0 SEE ADMIN CRITERIA 10/16 1500 CAN Medication ANY Oxycodone HCl 5 MG Q6H PRN 10/16 1645 AC PO Potassium Chloride 20 MEQ .Q6H40M 10/16 1215 DC 10/16 Dextrose/Sodium 1,000 ML IV 10/16 1854 1345 Chloride Tiotropium [place] 1 PUF DAILY 10/17 0900 DC INH Tiotropium [place] 1 PUF DAILY 10/17 09 AC INH Venlafaxine HCl 150 MG DAILY@10/16 AC 10/16 PO 212 Venlafaxine HCl 150 MG 0810/16 1500 DC PO Last 24 Hrs of Lab/Dajuan Results Last 24 Hrs of Labs/Mics: Laboratory Tests 10/17/17 0304: Anion Gap 9, Estimated GFR > 60, BUN/Creatinine Ratio 27.8 H, Magnesium 2.0 10/16/17 2300: Troponin I 0.01 10/16/17 1900: Urine Color YEL, Urine Clarity CLEAR, Urine pH 6.0, Ur Specific [place] 1.010, Urine Protein NEG, Urine Ketones NEG, Urine Nitrite NEG, Urine Bilirubin NEG, Urine Urobilinogen 0.2, Ur Leukocyte Esterase NEG, Ur Microscopic EXAM NOT REQUIRED, Urine Hemoglobin NEG, Urine Glucose NEG 10/16/17 1225: Anion Gap 9, Estimated GFR 54 L, BUN/Creatinine Ratio 27.0 H, Glucose 109 H, Calcium 9.1, Total Bilirubin 0.5, AST 52 H, ALT 43, Alkaline Phosphatase 81, Total Protein 6.8, Albumin 3.9, Globulin 2.9, Albumin/Globulin Ratio 1.3, PT 11.9, INR 1.09, APTT 33, CBC w Diff NO MAN DIFF REQ, RBC 4.46, MCV 95.1, MCH 31.6 H, MCHC 33.2, RDW 15.0 H, MPV 7.2 L, Gran % 75.9 H, Lymphocytes % 16.2 L, Monocytes % 4.7, Eosinophils % 2.8, Basophils % 0.4, Absolute Granulocytes 7.9 H, Absolute Lymphocytes 1.7, Absolute Monocytes 0.5, Absolute Eosinophils 0.3, Absolute Basophils 0 Assessment/Plan Assessment: Ms. Mayers is a 70-year-old lady with past medical history significant call for coronary artery disease, COPD, hypertension, hyperlipidemia, left breast cancer status post lumpectomy and radiation therapy, hypothyroidism, urinary incontinence and Lewy body dementia who is brought in by her daughter with a chief concern of dysphasia. Assessment and plan 1. TIA-seen by neurologist who suggested to start her on Plavix along with aspirin. Neurology follow-up appreciated. 2. Fall-not sure at this point whether this is mechanical fall or malignant arrhythmia. We will continue monitoring and telemetry. Overnight no events. 3. We will get a physical therapy consult for her. 4. Follow-up echocardiogram 5. Diet-n.p.o. for now in view of ultrasound abdomen 6. Code-full code Problem List: 1. TIA (transient ischemic attack) Pain Ratin Pain Location: None Pain Goal: Remain pain free Pain Plan: Tylenol Tomorrow's Labs & Rationales: CBC, BEP
--- NOTE | 2017-10-17 05:31 | Event Note ---
Event Note Event Note: On October 17, roughly 3:00 in the morning, a rapid response was called for this patient after she fell returning to her bed from the bathroom. Patient states that she hit her head and also her right knee. Patient was immediately responsive, and answer questions appropriately, AOX3. Neurological exam demonstrated no deficits. A head CT, EKG, BEP, and x-ray of the right knee were ordered. None of these showed any abnormality.
[2017-10-17 06:58] VITALS: BP 136/88
--- NOTE | 2017-10-17 11:49 | ULTRASOUND REPORT ---
EXAMINATION: US ABDOMEN COMPLETE CLINICAL INFORMATION: Abnormal LFTs. COMPARISON: None TECHNIQUE: Real-time imaging of the abdominal viscera. FINDINGS: Evaluation is limited due to patient's body habitus. PANCREAS: The pancreatic body and portions of the tail are visualized and appear unremarkable. Remainder of the pancreas is obscured by overlying bowel gas. ABDOMINAL AORTA: The proximal segment is normal in caliber. INFERIOR VENA CAVA: Visualized portions are normal. LIVER: There is diffusely increased echogenicity of the liver parenchyma, consistent with hepatic steatosis. This limits and beam penetration and this limits the sensitivity for assessing subtle liver lesions. No definite focal lesion seen. No intrahepatic biliary duct dilatation. With color Doppler imaging, normal hepatopetal flow is seen within the main portal vein. GALLBLADDER: Normal. The gallbladder is physiologically distended without evidence of stones, sludge, polyps, wall thickening or pericholecystic fluid. No sonographic Jones sign is elicited while scanning over the gallbladder. COMMON BILE DUCT: Normal in caliber measuring 0.4 cm in diameter. RIGHT KIDNEY: Normal. No hydronephrosis. No renal calculi or focal parenchymal lesions. The kidney measures 12.9 cm in maximum dimension. LEFT KIDNEY: Normal. No hydronephrosis. No renal calculi. There is an exophytic 1.2 x 0.9 x 1.2 cm hypoechoic mass in the mid left kidney, incompletely characterized due to difficulties with patient's body habitus. With color Doppler imaging, no vascular flow to this mass is seen. The kidney measures 10.4 cm in maximum dimension. SPLEEN: Normal. The spleen measures 12.2 cm in maximum dimension. FREE FLUID: None. IMPRESSION: 1. Diffuse hepatic steatosis. This limits assessment of the liver parenchyma. 2. Incomplete view of the pancreas with the pancreatic head and portions of the tail obscured by overlying bowel gas. 3. Incompletely characterized exophytic 1.2 cm hypoechoic mass in the mid left kidney. Further assessment with renal protocol CT or MRI scan is recommended.
[2017-10-17 14:56] VITALS: BP 130/62
[2017-10-17 22:37] VITALS: BP 138/86
--- NOTE | 2017-10-17 23:26 | ECHOCARDIOGRAM REPORT ---
CHUY MODI Age: 71 : 1945 Gender: F Exam Date: 10/17/2017 12:02 Exam Location: 1 [address] Ht (in): 67 Wt (lb): 280 BSA: 2.52 BP: 136 / 88 Ordering Physician: Roxie Arcos MD Referring Physician: Roxie Arcos MD Technologist: Roula Reyes [facility] Room Number: 174-2 Indications: Rhythm: Sinus Technical Quality: difficult FINDINGS Left Ventricle Globally preserved left ventricular systolic function, with possible hypokinesis of the apical segment, which could not be well visualized. Left ventricular ejection fraction is estimated at 55%. There is impaired relaxation of the LV. Right Ventricle Grossly normal in size and function. Right Atrium normal in size. Left Atrium Mildly enlarged left atrium. Interatrial septum could not be well visualized, appears grossly intact. Mitral Valve Mitral annulus calcification. Trace mitral regurgitation. Aortic Valve Sclerosis of the aortic valve leaflets without significant transvalvular gradient. Tricuspid Valve Mild tricuspid regurgitation. RVSP is within normal limits. Pulmonic Valve Not well visualized. Pericardium Absence of effusion. Great Vessels Aortic arch and great vessels are normal. Ascending aorta is not visualized. CONCLUSIONS Globally preserved left ventricular systolic function, with possible hypokinesis of the apical segment, which could not be well visualized. Left ventricular ejection fraction is estimated at 55%. There is impaired relaxation of the LV. Mildly enlarged left atrium. Mitral annulus calcification. Trace mitral regurgitation. Sclerosis of the aortic valve leaflets without significant transvalvular gradient. Mild tricuspid regurgitation. RVSP is within normal limits. Lul Oliveira M.D. (Electronically Signed) Final Date: 17 October 2017 23:21 MEASUREMENTS (Male / Female) Normal Values 2D ECHO LVOT Diameter 2.1 cm Aortic Root Diameter 2.2 cm LA Systolic Diameter LX 3.7 cm 3.0 - 4.0 / 2.7 - 3.8 cm LA Volume 52.0 cm 18 - 58 / 22 - 52 cm DOPPLER AV Peak Velocity 232.0 cm/s AV Peak Gradient 21.5 mmHg AV Mean Velocity 139.0 cm/s AV Mean Gradient 10.0 mmHg AV Velocity Time Integral 42.6 cm LVOT Peak Velocity 115.0 cm/s LVOT Peak Gradient 5.3 mmHg LVOT Mean Velocity 75.8 cm/s LVOT Mean Gradient 3.0 mmHg LVOT Velocity Time Integral 20.5 cm LVOT Stroke Volume 71.0 cm AV Area Cont Eq vti 1.7 cm AV Area Cont Eq pk 1.7 cm Mitral E Point Velocity 70.6 cm/s Mitral A Point Velocity 113.0 cm/s Mitral E to A Ratio 0.6 MV Deceleration Time 215.0 ms TR Peak Velocity 276.0 cm/s TR Peak Gradient 30.5 mmHg PV Peak Velocity 152.0 cm/s PV Peak Gradient 9.2 mmHg LV E' Lateral Velocity 8.5 cm/s Mitral E to LV E' Lateral Ratio 8.3 LV E' Septal Velocity 5.8 cm/s Mitral E to LV E' Septal Ratio 12.3
[2017-10-18 06:57] VITALS: BP 138/76
[2017-10-18 08:01] LABS: ABSOLUTE BASOPHIL COUNT 0.1 /CUMM (0.0-0.2); ABSOLUTE EOSINOPHIL COUNT 0.4 /CUMM (0.0-0.7); ABSOLUTE GRANULOCYTE CT 4.8 /CUMM (1.4-6.5); ABSOLUTE LYMPH COUNT 1.1 /CUMM (1.2-3.4); ABSOLUTE MONOCYTE COUNT 0.5 /CUMM (0.10-0.60); BASOPHIL % 1.3 % (0.0-2.0); EOSINOPHIL % 5.7 % (0-5); GRANULOCYTE % 70.5 % (42.2-75.2); HEMATOCRIT 41.6 % (37-47); MEAN CORPUSCULAR HGB 31.3 PG (27.0-31.0); MEAN CORPUSCULAR VOLUME 94.8 FL (81.0-99.0); MEAN PLATELET VOLUME 7.5 FL (7.4-10.4); PLATELET COUNT 361 /CUMM (130-400); RBC DISTRIBUTION WIDTH 15.5 % (11.5-14.5); RED BLOOD CELL CT 4.39 /CUMM (4.20-5.40); WHITE BLOOD CELL COUNT 6.8 /CUMM (4.8-10.8)
--- NOTE | 2017-10-18 12:22 | PN- Housestaff ---
See Addendum Subjective Follow-up For: TIA Multiple mechanical falls Knee pain Subjective: Patient seen resting comfortably in the bed. She is currently complaining of L knee pain, but reports able to ambulate to the restroom with the rolling walker. She denies SOB, chest pain, current dizziness. Denies recollection of word- finding difficulty, unable to remember events leading up to her hospitalization. Review of Systems Constitutional: Denies: chills, diaphoresis, fever. Objective Last 24 Hrs of Vital Signs/I&O Vital Signs Date Time Temp Pulse Resp B/P B/P Pulse O2 O2 Flow FiO2 Mean Ox Delivery Rate 10/18 0657 97.7 91 18 138/76 93 Room Air 10/17 2237 97.4 91 20 138/86 93 Room Air 10/17 1456 97.1 98 20 130/62 94 Room Air Intake & Output 10/18 1600 10/18 0800 10/18 0000 Intake Total 240 360 Output Total 600 Balance 240 -240 Intake, Oral 240 360 Output, Urine 600 Physical Exam General Appearance: Alert, Oriented X3, Cooperative, No Acute Distress Current Medications: Current Medications Sig/Ryan Start time Last Medication Dose Route Stop Time Status Admin Acetaminophen 650 MG Q6PRN PRN 10/16 1645 AC 10/17 PO 1623 Albuterol Sulfate 2 PUF Q4-6 PRN PRN 10/16 1500 AC INH Allopurinol 100 MG QPM 10/16 2100 AC 10/17 PO 2143 Anastrozole 1 MG DAILY@10/16 2100 AC 10/17 PO 2142 Aspirin 81 MG QPM 10/16 2099 AC 10/17 PO 2142 Atorvastatin Calcium 80 MG DAILY@10/16 AC 10/17 PO 2143 Carisoprodol 350 MG TIDPRN PRN 10/16 1500 AC PO Clopidogrel Bisulfate 75 MG DAILY 10/16 1515 AC 10/18 PO 0823 Diazepam 5 MG TID PRN 10/16 1500 AC 10/16 PO 2123 Enoxaparin Sodium 40 MG 1900 10/17 1900 AC 10/17 SC 1827 Fluticasone 1 PUF BID 10/17 0900 AC 10/18 Propionate INH 0824 Ketorolac 0 .STK-MED ONE 10/17 1830 DC Tromethamine .ROUTE Ketorolac 30 MG ONCE ONE 10/17 1830 DC 10/17 Tromethamine IV 10/17 1831 1833 Levothyroxine Sodium 0.1 MG DAILY AC 10/17 07 AC 10/18 PO 0614 Memantine 10 MG BID 10/16 2099 AC 10/18 PO 08 Mirabegron 25 MG DAILY 10/17 09 AC 10/18 PO 0824 Mirtazapine 30 MG QPM 10/16 2099 AC 10/17 PO 2143 Oxycodone HCl 5 MG Q6H PRN 10/16 1645 AC 10/17 PO 1623 Tiotropium [place] 1 PUF DAILY 10/17 899 AC 10/18 INH 0824 Venlafaxine HCl 150 MG DAILY@2100 10/16 2099 AC 10/17 PO 2143 Last 24 Hrs of Lab/Dajuan Results Last 24 Hrs of Labs/Mics: Laboratory Tests 10/18/1715: Anion Gap 8, Estimated GFR > 60, BUN/Creatinine Ratio 30.0 H, CBC w Diff NO MAN DIFF REQ, RBC 4.39, MCV 94.8, MCH 31.3 H, MCHC 33.0, RDW 15.5 H, MPV 7.5, Gran % 70.5, Lymphocytes % 15.7 L, Monocytes % 6.8, Eosinophils % 5.7 H, Basophils % 1.3, Absolute Granulocytes 4.8, Absolute Lymphocytes 1.1 L, Absolute Monocytes 0.5, Absolute Eosinophils 0.4, Absolute Basophils 0.1 Assessment/Plan Assessment: Ms. Mayers is a 70-year-old lady with past medical history significant call for coronary artery disease, COPD, hypertension, hyperlipidemia, left breast cancer status post lumpectomy and radiation therapy, hypothyroidism, urinary incontinence and Lewy body dementia who is brought in by her daughter with a chief concern of dysphasia. Knee x-ray showed degenerative changes, in the setting of psoriatic plaques on the BLE, this may represent psoriatic arthritis, or osteoarthritis in a 71 year old female. Problems: 1. TIA 2. Unwitnessed mechanical falls (stairs and bathtub) 3. Hypothyroidism 4. COPD 5. Urinary retention 6. History of Lewy body dementia Plan: * Continue Aspirin & Plavix * Follow-up PT recommendations * Echo showed EF of 55% , with impaired relaxation of LV * Continue Fluticasone & Spiriva * Continue Mirabegron * Continue Levothyroxine * Continue Remeron, Namenda Code-full code Lovenox DVT prophylaxis Heart healthy diet Problem List: 1. TIA (transient ischemic attack) Pain Ratin Pain Location: L knee Pain Goal: Pain 4 or less Pain Plan: per pathway Tomorrow's Labs & Rationales: BEP
[2017-10-18 14:31] VITALS: BP 148/80
[2017-10-18 23:29] VITALS: BP 158/92
[2017-10-19 07:05] VITALS: BP 160/92
--- NOTE | 2017-10-19 07:56 | PN- Housestaff ---
Nate Morrow 10/19/17 0755: Subjective Follow-up For: TIA versus seizure Tele-Events Since Last Visit: NSR 86-94 Subjective: Per nursing there were no events overnight. Patient has no new complaints. No events on telemonitor. She says her knee from the fall is a bit tender. She denies any dizziness, blurry vision, palpitations, headache, auras, or new episodes of LOC. Review of Systems Constitutional: Reports: see HPI. Objective Last 24 Hrs of Vital Signs/I&O Vital Signs Date Time Temp Pulse Resp B/P B/P Pulse O2 O2 Flow FiO2 Mean Ox Delivery Rate 10/19 1039 Room Air 2.0L 10/19 0856 101 130/70 10/19 0705 98.5 88 20 160/92 91 Room Air 10/19 0000 Room Air 10/18 2329 98.8 91 20 158/92 93 Room Air 10/18 2144 90 18 148/80 10/18 1431 97.9 91 18 148/80 94 Room Air Intake & Output 10/19 1600 10/19 0800 10/19 0000 Intake Total 120 Output Total 300 Balance -300 120 Intake, Oral 120 Output, Urine 300 Physical Exam General Appearance: Alert, Oriented X3, Cooperative, No Acute Distress Skin Temp/Moisture Exam: Warm/Dry HEENT: Atraumatic, EOMI Neck: Supple Cardiovascular: Normal S1, Normal S2 Lungs: Clear to Auscultation Abdomen: Normal Bowel Sounds, Soft, No Tenderness Neurological: Normal Speech, Strength at 5/5 X4 Ext Extremities: Trace edecma BL lower extremities, L Knee Tenderness Current Medications: Current Medications Sig/Ryan Start time Last Medication Dose Route Stop Time Status Admin Acetaminophen 650 MG Q6PRN PRN 10/16 1645 AC 10/17 PO 1623 Albuterol Sulfate 2 PUF Q4-6 PRN PRN 10/16 1500 AC INH Allopurinol 100 MG QPM 10/16 2099 AC 10/18 PO 214 Anastrozole 1 MG DAILY@10/16 AC 10/18 PO 214 Aspirin 81 MG QPM 10/16 2100 AC 10/18 PO 214 Atorvastatin Calcium 40 MG DAILY@10/19 2100 AC PO Atorvastatin Calcium 80 MG DAILY@10/16 2100 DC 10/18 PO 214 Carisoprodol 350 MG TIDPRN PRN 10/16 1500 AC PO Clopidogrel Bisulfate 75 MG DAILY 10/16 1515 AC 10/19 PO 0853 Diazepam 5 MG TID PRN 10/16 1500 AC 10/16 PO 2123 Enoxaparin Sodium 40 MG 1900 10/17 1900 AC 10/18 SC 2000 Fluticasone 1 PUF BID 10/17 0900 AC 10/19 Propionate INH 0856 Levothyroxine Sodium 0.1 MG DAILY AC 10/17 0700 AC 10/19 PO 0607 Lisinopril 20 MG DAILY 10/18 1847 AC 10/19 PO 0856 Memantine 10 MG BID 10/16 2100 AC 10/19 PO 0853 Mirabegron 25 MG DAILY 10/17 0900 AC 10/19 PO 0856 Mirtazapine 30 MG QPM 10/16 2100 AC 10/18 PO 2144 Oxycodone HCl 5 MG Q6H PRN 10/16 1645 AC 10/18 PO 2152 Tiotropium [place] 1 PUF DAILY 10/17 0900 AC 10/19 INH 0857 Venlafaxine HCl 150 MG DAILY@2100 10/16 2100 AC 10/18 PO 2144 Last 24 Hrs of Lab/Dajuan Results Last 24 Hrs of Labs/Mics: Laboratory Tests 10/19/17 0620: Anion Gap 8, Estimated GFR > 60, BUN/Creatinine Ratio 23.8, Phosphorus 4.4, Magnesium 1.9 Assessment/Plan Assessment: Pt is a 71 yo F with PMH significant for COPD, CAD, HTN, HLD, Left breast cancer s/p lumpectomy and radiation therapy, hypothyroidism, urinary incontinence, and Lewy Body Dementia (dx 3 years ago). She is brought in to ED by her daughter after an episode of impaired speech. #TIA Vs Seizure - Pt seems markedly improved today, no longer lethargic - Neuro recommends to cont with dual anti-platlet and high intensity statin - Neuro has signed off Problem List: 1. TIA (transient ischemic attack) Pain Ratin Pain Location: NA Pain Goal: Remain pain free Pain Plan: Per pathway Tomorrow's Labs & Rationales: None, all stable Yoselin TURK,Zarina 10/19/17 1030: Attending MD Review Statement Attending Statement Attending MD Statement: examined this patient, discuss w/resident/PA/FURNACE BRAZER, agreed w/resident/PA/FURNACE BRAZER, reviewed EMR data (avail), discussed with nursing, discussed with case mgmt, reviewed images Attending Assessment/Plan: 71-year-old female past medical history of Lewy body dementia, COPD, CAD, hypertension and hyperlipidemia and previous breast cancer on armidex. She is here with what appears to be a TIA. Neurology saw her and Plavix was added to aspirin. PT is working with her and is recommending STR. And will follow closely.
[2017-10-19 15:00] VITALS: BP 158/88
--- NOTE | 2017-10-19 15:15 | PN- Neurology ---
Subjective Subjective: Stable. Doing well outside of chronic left knee pain. No further events since tweaking meds. Review of Systems: none. Objective Vital Signs and I&Os Vital Signs Date Time Temp Pulse Resp B/P B/P Pulse O2 O2 Flow FiO2 Mean Ox Delivery Rate 10/19 1039 Room Air 2.0L 10/19 0856 101 130/70 10/19 0705 98.5 88 20 160/92 91 Room Air 10/19 0000 Room Air 10/18 2329 98.8 91 20 158/92 93 Room Air 10/18 2144 90 18 148/80 Intake & Output 10/19 1600 10/19 0800 10/19 0000 10/18 1600 10/18 0800 10/18 0000 Intake Total 120 500 240 360 Output Total 300 600 Balance -300 120 500 240 -240 Intake, Oral 120 500 240 360 Number 1 Bowel Movements Output, Urine 300 600 Patient 220 lb Weight Weight Standing Scale Measurement Method Physical Exam: Fluent and comprehends. Oriented x3 Face symmetric EOMI Equal strength in limbs Gait stable Current Medications: Current Medications Sig/Ryan Start time Last Medication Dose Route Stop Time Status Admin Acetaminophen 650 MG Q6PRN PRN 10/16 1645 AC 10/17 PO 1623 Albuterol Sulfate 2 PUF Q4-6 PRN PRN 10/16 1500 AC INH Allopurinol 100 MG QPM 10/16 2100 AC 10/18 PO 2144 Anastrozole 1 MG DAILY@10/16 2100 AC 10/18 PO 2144 Aspirin 81 MG QPM 10/16 2100 AC 10/18 PO 2144 Atorvastatin Calcium 40 MG DAILY@10/19 2100 AC PO Atorvastatin Calcium 80 MG DAILY@10/16 2100 DC 10/18 PO 2144 Carisoprodol 350 MG TIDPRN PRN 10/16 1500 AC PO Clopidogrel Bisulfate 75 MG DAILY 10/16 1515 AC 10/19 PO 0853 Diazepam 5 MG TID PRN 10/16 1500 AC 10/16 PO 2123 Enoxaparin Sodium 40 MG 1900 10/17 1900 AC 10/18 SC 2000 Fluticasone 1 PUF BID 10/17 0900 AC 10/19 Propionate INH 0856 Levothyroxine Sodium 0.1 MG DAILY AC 10/17 0700 AC 10/19 PO 0607 Lisinopril 20 MG DAILY 10/18 1847 AC 10/19 PO 0856 Memantine 10 MG BID 10/16 2099 AC 10/19 PO 0853 Mirabegron 25 MG DAILY 10/17 0900 AC 10/19 PO 0856 Mirtazapine 30 MG QPM 10/16 2099 AC 10/18 PO 2144 Oxycodone HCl 5 MG Q6H PRN 10/16 1645 AC 10/18 PO 2152 Tiotropium [place] 1 PUF DAILY 10/17 09 AC 10/19 INH 0857 Venlafaxine HCl 150 MG DAILY@2100 10/16 2099 AC 10/18 PO 214 Results Last 24 Hours of Lab Results: Laboratory Tests 10/19 0620 Chemistry Sodium (137 - 145 mmol/L) 138 Potassium (3.5 - 5.1 mmol/L) 4.5 Chloride (98 - 107 mmol/L) 100 Carbon Dioxide (22 - 30 mmol/L) 30 Anion Gap (5 - 16) 8 BUN (7 - 17 mg/dL) 19 H Creatinine (0.5 - 1.0 mg/dL) 0.8 Estimated GFR (>60 ml/min) > 60 BUN/Creatinine Ratio (7 - 25 %) 23.8 Phosphorus (2.5 - 4.5 mg/dL) 4.4 Magnesium (1.6 - 2.3 mg/dL) 1.9 Recent Imaging Studies: FINDINGS: There is no evidence of acute intracranial hemorrhage or territorial infarction. No abnormal mass effect or midline shift is seen. Smith to white matter differentiation is well preserved. No extra-axial fluid collections are identified. No hydrocephalus. Proportional prominence of the ventricles and sulcal spaces is consistent with mild volume loss. Patchy periventricular and deep white matter hypoattenuation is consistent with mild small vessel ischemic changes. The osseous structures and soft tissues are normal. Mucous retention cyst of the left maxillary sinus. The mastoid air cells and visualized portions of the paranasal sinuses are otherwise well aerated. IMPRESSION: No acute intracranial pathology. Mild volume loss with small vessel ischemic change. CTA: CT neck: 1. There are atheromatous calcifications at multiple levels as described above. 2. There is no significant stenosis in the carotid or vertebral arteries. CTA head: 1. There is an incidental small aneurysm (2mm) laterally off the right cavernous internal carotid artery. 2. There are no focal stenoses or vascular malformations. Assessment/Plan Assessment: Dx: Recurrent TIA, now resolved. Small aneurysms. Carotid disease without dipak stenosis. Plan: 1. C/w dual anti-platelet and high intensity statin. 2. Should f/u with Dr. Lay of [place] for very low risk monitoring of tiny aneurysm. Neuro signing off.
[2017-10-19 23:25] VITALS: BP 126/78
[2017-10-20 06:41] VITALS: BP 132/94
--- NOTE | 2017-10-20 07:14 | PN- Housestaff ---
CarolineKailey xavierNate 10/20/17 0714: Subjective Follow-up For: TIA vs Seizure Subjective: Per nursing there were no events overnight. No events on telemonitor. Patient has no new complaints. Review of Systems Constitutional: Reports: see HPI. Objective Last 24 Hrs of Vital Signs/I&O Vital Signs Date Time Temp Pulse Resp B/P B/P Pulse O2 O2 Flow FiO2 Mean Ox Delivery Rate 10/20 1447 98.5 90 20 162/98 94 Room Air 10/20 0945 93 138/76 10/20 0641 98.5 88 18 132/94 92 Room Air 10/19 2325 98.6 97 18 126/78 91 Room Air 10/19 2241 Room Air Intake & Output 10/20 1600 10/20 0800 10/20 0000 Intake Total 810 50 Output Total Balance 810 50 Intake, IV 10 Intake, Oral 800 50 Patient 278 lb Weight Physical Exam General Appearance: Alert, Oriented X3, Cooperative, No Acute Distress Skin Temp/Moisture Exam: Warm/Dry HEENT: Atraumatic, EOMI Neck: Supple Cardiovascular: Normal S1, Normal S2 Lungs: Clear to Auscultation Abdomen: Normal Bowel Sounds, Soft, No Tenderness Neurological: Normal Speech Extremities: No Cyanosis, No Edema, Brace Left Lower Leg Current Medications: Current Medications Sig/Ryan Start time Last Medication Dose Route Stop Time Status Admin Acetaminophen 650 MG Q6PRN PRN 10/16 1645 AC 10/17 PO 1623 Albuterol Sulfate 2 PUF Q4-6 PRN PRN 10/16 1500 AC INH Allopurinol 100 MG QPM 10/16 2100 AC 10/19 PO 2007 Anastrozole 1 MG DAILY@10/16 AC 10/19 PO 2008 Aspirin 81 MG QPM 10/16 2100 AC 10/19 PO 2007 Atorvastatin Calcium 40 MG DAILY@10/19 2100 AC 10/19 PO 2007 Carisoprodol 350 MG TIDPRN PRN 10/16 1500 AC PO Clopidogrel Bisulfate 75 MG DAILY 10/16 1515 AC 10/20 PO 0946 Diazepam 5 MG TID PRN 10/16 1500 AC 10/16 PO 2123 Enoxaparin Sodium 40 MG 1900 10/17 1900 AC 10/20 SC 1829 Fluticasone 1 PUF BID 10/17 0900 AC 10/20 Propionate INH 0948 Hydrocodone Bitart/ 0 .STK-MED ONE 10/20 0556 DC Acetaminophen PO Levothyroxine Sodium 0.1 MG DAILY AC 10/17 07 AC 10/20 PO 0557 Lisinopril 20 MG DAILY 10/18 1847 AC 10/20 PO 0945 Memantine 10 MG BID 10/16 2099 AC 10/20 PO 0946 Mirabegron 25 MG DAILY 10/17 09 AC 10/20 PO 945 Mirtazapine 30 MG QPM 10/16 2099 AC 10/19 PO 2007 Oxycodone HCl 5 MG Q6H PRN 10/16 1645 AC 10/20 PO 1431 Polyethylene Glycol 17 GM DAILY NEEDED PRN 10/20 914 AC PO Senna 187 MG AT BEDTIME NEED.. 10/20 914 AC PO Senna/Docusate Sodium 0 .STK-MED ONE 10/20 09 DC PO Tiotropium [place] 1 PUF DAILY 10/17 899 AC 10/20 INH 0947 Venlafaxine HCl 150 MG DAILY@10/16 AC 10/19 PO 2007 Assessment/Plan Assessment: Pt is a 71 yo F with PMH significant for COPD, CAD, HTN, HLD, Left breast cancer s/p lumpectomy and radiation therapy, hypothyroidism, urinary incontinence, and Lewy Body Dementia (dx 3 years ago). She is brought in to ED by her daughter after an episode of impaired speech. 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 TIA (transient ischemic attack) Pain Ratin Pain Location: NA Pain Goal: Remain pain free (0) Pain Plan: Per pathway Tomorrow's Labs & Rationales: None Zarina Wyatt MD 10/20/17 1037: Attending Review Statement Attending Statement Attending MD Statement: examined this patient, discuss w/resident/PA/X RAY EQUIPMENT TESTER, agreed w/resident/PA/X RAY EQUIPMENT TESTER, reviewed EMR data (avail), discussed with nursing, discussed with case mgmt, reviewed images Attending Assessment/Plan: Pt is doing well. Her knee pain is better and she is working with PT. Appreciate neurology follow-up and she will need outpatient neurological follow- up for the small aneurysm. And with anticipating discharge to STR in the next 24 hours.
--- NOTE | 2017-10-20 07:31 | Discharge Summary ---
See Addendum Visit Information Visit Dates Admission Date: 10/18/17 Discharge Date: 10/21/17 Hospital Course Course Attending Physician: Yoselin TURK,Zarina Becerra Primary Care Physician: Jyoti TURK,Getachew Parada Consulting Request: Consulting Specialty: Neurology Hospital Course: Pt is a 71 yo F with PMH significant for COPD, CAD, HTN, HLD, Left breast cancer s/p lumpectomy and radiation therapy, hypothyroidism, urinary incontinence, and Lewy Body Dementia (dx 3 years ago). She is brought in to ED by her daughter after an episode of impaired speech. Patient was admitted to telemetry floor for the management of following; 1. TIA 2. Chronic medical conditions Neurology consult was obtained and patient was started on Plavix in addition to aspirin as patient had Left MCA pattern with dysphasia. CT head was negative on admission as well as further imaging done for stroke i.e, echocardiogram, CTA head and neck. Patient was evaluated by PT who recommended patient should be discharged to her rehab facility. Her blood pressure medications were held on admission because of borderline hypotension but were resumed later on. Rest of her home medications were continued. Pt has lewy body dementia with memory loss Allergies: Coded Allergies: Penicillins (UNKNOWN 10/16/17) Significant Procedures: CT CERV SPINE WO IV CONTRAST IMPRESSION: 1. No evidence of cervical spine fracture or malalignment. 2. Severe degenerative disc disease and partial fusion across C5-6 and C6-7. 3. Moderate degenerative changes at the atlantoaxial articulation and at the facet joints in the mid and lower cervical spine. CT HEAD WO IV CONTRAST IMPRESSION: 1. No definite territorial infarct seen, though evaluation is significantly limited by the motion artifact. Close follow-up is recommended. 2. No acute intracranial hemorrhage. 3. Small mucous retention cyst in the left maxillary sinus. XRY-PORTABLE CHEST XRAY IMPRESSION: Mild bibasilar subsegmental atelectasis. No other acute process. CT HEAD ANGIOGRAM; CT NECK ANGIOGRAM IMPRESSION: CT head: 1. There are no acute bleeds or territorial infarcts. 2. There are no masses or areas of abnormal enhancement. 3. There is volume loss and mild chronic microvascular ischemic disease. CT neck: 1. There are atheromatous calcifications at multiple levels as described above. 2. There is no significant stenosis in the carotid or vertebral arteries. CTA head: 1. 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 2. There are no focal stenoses or vascular malformations. ECHOCARDIOGRAM CONCLUSIONS Globally preserved left ventricular systolic function, with possible hypokinesis of the apical segment, which could not be well visualized. Left ventricular ejection fraction is estimated at 55%. There is impaired relaxation of the LV. Mildly enlarged left atrium. Mitral annulus calcification. Trace mitral regurgitation. Sclerosis of the aortic valve leaflets without significant transvalvular gradient. Mild tricuspid regurgitation. RVSP is within normal limits. Disposition Summary Disposition Principal Diagnosis: TIA Additional Diagnosis: Hx of COPD, CAD, HTN, HLD, hypothyroidism. Incidental small aneurysm laterally off the right cavernous internal carotid artery. Lewy Bodt Dementia Discharge Disposition: SNF Discharge Instructions General Discharge Information Code Status: Full Code Patient's Diet: Heart Healthy Patient's Activity: As tolerated Follow-Up Instructions/Appts: Please follow-up with your PCP and neurologist within a week after discharge. Please follow up with the neurovascular interventional radiologist Dr Lay at [facility] after discharge for the small aneurysm found incidentally on the CAT scan. Medications at Discharge Discharge Medications: Continue taking these medications: Anastrozole (Anastrozole) 1 MG TABLET 1 Tablet ORAL DAILY Qty = 30 Fluticasone/Vilanterol (Breo Ellipta 100-25 Mcg INH) 100 MCG-25 MCG/DOSE BLST.W.DEV 1 PUFF Inhale through mouth DAILY Qty = 60 Umeclidinium [place] (Incruse Ellipta) 62.5 MCG/ACTUATION BLST.W.DEV 1 PUFF Inhale through mouth DAILY Albuterol Sulfate (Proair Hfa) 90 MCG HFA.AER.AD 2 Puff Inhale through mouth EVERY 4-6 HOURS NEEDED as needed for SHORTNESS OF BREATH Amlodipine Besylate (Amlodipine Besylate) 10 MG TABLET 1 Tablet ORAL DAILY Qty = 90 Lisinopril/Hydrochlorothiazide (Lisinopril-Hctz 20-12.5 MG Tab) 20 MG-12.5 MG TABLET 1 Tablet ORAL DAILY Qty = 90 Allopurinol (Allopurinol) 100 MG TABLET 1 Tablet ORAL Every night Qty = 30 Mirtazapine (Mirtazapine) 30 MG TABLET 1 Tablet ORAL Every night Qty = 30 Venlafaxine HCl (Venlafaxine HCl ER) 150 MG CAP.ER.24H 1 Capsule ORAL Every night Qty = 30 Levothyroxine Sodium (Levothyroxine Sodium) 100 MCG TABLET 1 Tablet ORAL DAILY BEFORE BREAKFAST Qty = 90 Memantine HCl (Namenda) 10 MG TABLET 1 Tablet ORAL TWICE DAILY Qty = 60 Carisoprodol (Carisoprodol) 350 MG TABLET 1 Tablet ORAL THREE TIMES A DAY NEEDED as needed for SPASMS Qty = 270 Diazepam (Diazepam) 10 MG TABLET 1 Tablet ORAL THREE TIMES A DAY NEEDED as needed for ANXIETY Qty = 60 Mirabegron (Myrbetriq) 25 MG TAB.ER.24H 1 Tablet ORAL DAILY Qty = 30 Aspirin (Aspirin*) 81 MG TAB.CHEW 1 Tablet ORAL Every night Loratadine (Claritin) 10 MG TABLET 1 Tablet ORAL DAILY Simvastatin (Simvastatin*) 80 MG TABLET 1 Tablet ORAL DAILY Qty = 90 Start taking the following new medications: Clopidogrel Bisulfate (Plavix) 75 MG TABLET 1 Tablet ORAL DAILY Qty = 30 No Refills Copies To: Vangie TURK,Lance Constantino; Jyoti TURK,Getachew Parada
[2017-10-20] MEDS ORDERED: PLAVIX75 M1 PO (13:36)
[2017-10-20] MEDS ORDERED: SIMVASTATIN80 M1 PO (13:36)
[2017-10-20 14:47] VITALS: BP 162/98
--- NOTE | 2017-10-20 15:50 | Patient Discharge Instructions ---
Discharge Instructions General Discharge Information You were seen/treated for: TIA Watch for these problems: Please return to the ER of any slurred speech, numbness/weakness, sudden loss of vision, facial droop or any gait instability. Special Instructions: Please follow-up with your PCP, urologist and neurovascular Interventional radiolofist at [facility] within a week after discharge. Diet Continue normal diet: Yes Activity Full Activity/No Limits: Yes Acute Coronary Syndrome Inclusion Criteria At DC or during hospital stay patient has or had the following: ACS DIAGNOSIS No Discharge Core Measures Meds if any: Prescribed or Continued at Discharge Meds if any: NOT Prescribed or Continued at Discharge Congestive Heart Failure Inclusion Criteria At DC or during hospital stay patient has or had the following: CHF DIAGNOSIS No Discharge Core Measures Meds if any: Prescribed or Continued at Discharge Meds if any: NOT Prescribed or Continued at Discharge Cerebrovascular accident Inclusion Criteria At DC or during hospital stay patient has or had the following: CVA/TIA Diagnosis No Discharge Core Measures Meds if any: Prescribed or Continued at Discharge Meds if any: NOT Prescribed or Continued at Discharge Venous thromboembolism Inclusion Criteria VTE Diagnosis No VTE Type NONE VTE Confirmed by (Test) NONE Discharge Core Measures - Per Current guidelines, there needs to be overlap - treatment for the first 5 days of Warfarin therapy. - If discharged on Warfarin prior to 5 days of - overlap therapy, the patient will need to be - assessed for post discharge needs including - *Post discharge parental anticoagulation - *Warfarin and/or parental anticoagulation education - *Follow up date to check INR post discharge At least 5 days overlap therapy as Inpatient No Meds if any: Prescribed or Continued at Discharge Note: Overlap Therapy is Warfarin and Anticoagulant Meds if any: NOT Prescribed or Continued at Discharge
[2017-10-20 22:16] VITALS: BP 140/88
[2017-10-21 07:04] VITALS: BP 136/78
--- NOTE | 2017-10-21 07:18 | PN- Housestaff ---
Nate Morrow 10/21/17 0718: Subjective Follow-up For: TIA Subjective: No events on tele monitor. Pt says she's feeling much better. C/o of some tenderness in her left knee. She had 2 bowel movements yesterday. No new complaints. Review of Systems Constitutional: Reports: see HPI. Objective Last 24 Hrs of Vital Signs/I&O Vital Signs Date Time Temp Pulse Resp B/P B/P Pulse O2 O2 Flow FiO2 Mean Ox Delivery Rate 10/21 1052 98.4 88 18 136/78 10/21 0826 88 136/78 10/21 0704 98.4 88 18 136/78 92 Room Air 10/20 2216 98.8 86 20 140/88 93 Room Air 10/20 2112 Room Air 10/20 1447 98.5 90 20 162/98 94 Room Air Intake & Output 10/21 1600 10/21 0800 10/21 0000 Intake Total Output Total Balance Patient 279 lb Weight Weight Bed scale Measurement Method Physical Exam General Appearance: Alert, Oriented X3, Cooperative, No Acute Distress Skin Temp/Moisture Exam: Warm/Dry HEENT: Atraumatic, EOMI Neck: Supple Cardiovascular: Normal S1, Normal S2 Lungs: Clear to Auscultation Abdomen: Normal Bowel Sounds, Soft, No Tenderness Neurological: Normal Speech Extremities: No Cyanosis, No Edema, Brace Left knee Current Medications: Current Medications Sig/Ryan Start time Last Medication Dose Route Stop Time Status Admin Acetaminophen 650 MG Q6PRN PRN 10/16 1645 AC 10/17 PO 1623 Albuterol Sulfate 2 PUF Q4-6 PRN PRN 10/16 1500 AC INH Allopurinol 100 MG QPM 10/16 2100 AC 10/20 PO 2023 Anastrozole 1 MG DAILY@10/16 2100 AC 10/20 PO 2023 Aspirin 81 MG QPM 10/16 2099 AC 10/20 PO 2024 Atorvastatin Calcium 40 MG DAILY@10/19 AC 10/20 PO 2024 Carisoprodol 350 MG TIDPRN PRN 10/16 1500 AC PO Clopidogrel Bisulfate 75 MG DAILY 10/16 1515 AC 10/21 PO 08 Diazepam 5 MG TID PRN 10/16 1500 AC 10/20 PO 2024 Enoxaparin Sodium 40 MG 1900 10/17 1900 AC 10/20 SC 1829 Fluticasone 1 PUF BID 10/17 899 AC 10/21 Propionate INH 0826 Levothyroxine Sodium 0.1 MG DAILY AC 10/17 07 AC 10/21 PO 0542 Lisinopril 20 MG DAILY 10/18 1847 AC 10/21 PO 08 Memantine 10 MG BID 10/16 2099 AC 10/21 PO 825 Mirabegron 25 MG DAILY 10/17 899 AC 10/21 PO 825 Mirtazapine 30 MG QPM 10/16 2099 AC 10/20 PO 2023 Oxycodone HCl 5 MG Q6H PRN 10/16 1645 AC 10/21 PO 0542 Polyethylene Glycol 17 GM DAILY NEEDED PRN 10/20 914 AC PO Senna 187 MG AT BEDTIME NEED.. 10/20 914 AC PO Tiotropium [place] 1 PUF DAILY 10/17 899 AC 10/21 INH 08 Venlafaxine HCl 150 MG DAILY@2100 10/16 2099 AC 10/20 PO 2024 Assessment/Plan Assessment: Pt is a 71 yo F with PMH significant for COPD, CAD, HTN, HLD, Left breast cancer s/p lumpectomy and radiation therapy, hypothyroidism, urinary incontinence, and Lewy Body Dementia (dx 3 years ago). She is brought in to ED by her daughter after an episode of impaired speech and one sided weakness. 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 TIA (transient ischemic attack) Pain Ratin Pain Location: NA Pain Goal: Remain pain free Pain Plan: Per pathway Tomorrow's Labs & Rationales: None Zarina Wyatt MD 10/21/17 0939: Attending MD Review Statement Attending Statement Attending MD Statement: examined this patient, discuss w/resident/PA/DIRECTOR OF CURRICULUM, agreed w/resident/PA/DIRECTOR OF CURRICULUM, reviewed EMR data (avail), discussed with nursing, discussed with case mgmt Attending Assessment/Plan: Patient is feeling well. She has underlying Lewy body dementia with memory loss. She is stable to go to rehab today. We are treating her for a TIA and we have added Plavix to her regimen. She has an incidentally noted renal mass that will need outpatient follow-up and we have added this to the discharge summary and spoken to the daughter about it.
[2017-10-21 10:52] VITALS: BP 136/78
== END 2017-10-21 11:15 | DRG 69 ==
LOC: ERH 11:56 → ERHI 13:32 → ENRESERV 13:55 → ENTRNSPT 15:15 → EDTRNSPT 15:19 → EDTRNSPTSTS 15:19 → 1NO 15:32 → CMPTRNSPT 15:49 → 1NO 10-18 14:49 → ENPENDDIS 10-21 09:35 → ENTRNSPT 10-21 11:03 → EDTRNSPTSTS 10-21 11:08 → EDTRNSPT 10-21 11:08 → 1NO 10-21 11:15 → CMPTRNSPT 10-21 11:29
PROVIDERS: Emergency Medicine; Student in an Organized Health Care Education/Training Program
DX: G45.9 Transient cerebral ischemic attack, unspecified (principal); G31.83 Neurocognitive disorder with Lewy bodies; F02.80 Dementia in other diseases classified elsewhere, unspecified severity, without behavioral disturbance, psychotic disturbance, mood disturbance, and anxiety; E03.9 Hypothyroidism, unspecified; I72.0 Aneurysm of carotid artery; I25.10 Atherosclerotic heart disease of native coronary artery without angina pectoris; I10 Essential (primary) hypertension; N28.89 Other specified disorders of kidney and ureter; J44.9 Chronic obstructive pulmonary disease, unspecified; J45.909 Unspecified asthma, uncomplicated; Z87.891 Personal history of nicotine dependence; W18.30XA Fall on same level, unspecified, initial encounter; Y92.230 Patient room in hospital as the place of occurrence of the external cause; M25.569 Pain in unspecified knee; Z91.81 History of falling
CPT/HCPCS: 1NSP; 36415; 36592; 71045; 73560-RT; 81003; 82436; 93005; 93010; 93306; 97110-GO; 97116-GO; 97162-GP; G8978-GP; G8979-GP; J1650; J1885; J3490; J7042; S5012